=== PATIENT | female | born 1955 | race Caucasian/White ===

== ENCOUNTER 2019-03-16 17:09 | Observation (INO) ==
--- NOTE | 2019-03-16 17:23 | Emergency Department Note ---
Disposition Clinical Impression: Near syncope, Hypoxia, COPD exacerbation Disposition: Admitted As Inpatient Condition: Undetermined Referrals: Rebekah Rae MD [Primary Care Provider] - Forms: ED Satisfaction Letter Time of Disposition: 20:03 General Adult HPI - General Stated complaint: near syncope Time Seen by Provider: 03/16/19 17:10 Source: patient, family (daughter), EMS Mode of arrival: EMS Limitations: no limitations Nursing Notes Reviewed: Yes Vital Signs Reviewed: Yes - History of Present Illness HPI Narrative: Patient is a 64-year-old female with a past medical history including hyperlipidemia, asthma/COPD not on home oxygen, presenting with chief complaint of near syncopal event. The patient states she has a history of syncope. She has been evaluated by cardiology and had a Holter monitor. She states they do not know what caused her syncope. She states she has stopped following up with cardiology a year ago. Today she states her and her daughter had this eaten food. Around 4:30 PM, they went into the store. When she was walking, she suddenly developed lightheadedness. She states her vision started to black out and she felt very nauseous. She thought she was going to pass out so she sat on the floor. Daughter states she was very flushed. Symptoms started to resolve when the patient was sitting. EMS was called and brought the patient here. Vitals within normal limits. Patient states she is feeling better now. She denies any chest pain, shortness of breath, abdominal pain, vomiting during this episode. Patient denies any history of blood clots, denies recent travel or surgery, hormone therapy, hemoptysis, unilateral lower extremity swelling. - Related Data Home Medications Medication Instructions Recorded Confirmed Advair Hfa 230-21 Mcg Inhaler 06/28/15 06/28/15 Atorvastatin 06/28/15 06/28/15 Calcium. 06/28/15 06/28/15 Ranitidine HCl 06/28/15 06/28/15 Spiriva 06/28/15 06/28/15 Allergies Allergy/AdvReac Type Severity Reaction Status Date / Time Cephalosporins Allergy Dizziness Verified 03/16/19 17:35 ciprofloxacin [From Cipro] Allergy Confusion Verified 03/16/19 17:35 esomeprazole [From Nexium] Allergy Rash Verified 03/16/19 17:35 Penicillins [PCN] Allergy Confusion Verified 03/16/19 17:35 phenobarbital Allergy Confusion Verified 03/16/19 17:35 Procaine [From Novocain] Allergy Confusion Verified 03/16/19 17:35 All systems ED: reviewed and negative except as stated. Review of Systems: As Per HPI Constitutional: Denies: fever, chills Cardiovascular: Reports: syncope. Denies: chest pain, palpitations Respiratory: Denies: cough, dyspnea Gastrointestinal: Reports: nausea. Denies: abdominal pain, vomiting, diarrhea Neurological: Denies: headache, weakness Past Medical History - Past Medical History Attestation: Yes The following information was validated with the patient. 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 - Social History Smoking Status: Unknown if ever smoked Smokeless Tobacco Status: No Alcohol use: Reports: none Drug use: Reports: none Physical Exam - General Limitations: no limitations General appearance: alert, in no apparent distress - Head Head exam: atraumatic, normocephalic - Eye Eye exam: Present: normal appearance, PERRL, EOMI - ENT ENT exam: normal exam, mucous membranes moist - Neck Neck exam: Present: normal inspection, trachea midline - Chest Chest inspection: Present: normal inspection, symmetric chest wall rise - Respiratory Respiratory exam: Present: other (significantly diminished breath sounds bilaterally with mild expiratory wheezing, O2 saturation 88% on room air, no accessory muscle use ) - Cardiovascular Cardiovascular exam: Present: regular rate, normal rhythm, normal heart sounds. Absent: systolic murmur, diastolic murmur - Abdominal Exam Abdominal exam: Present: soft, Non-Tender. Absent: distention - Extremities Exam Extremities exam: Present: full ROM, normal capillary refill. Absent: pedal edema, calf tenderness - Neurological Exam Neurological exam: Present: alert, oriented X3 - Psychiatric Psychiatric exam: Present: normal affect, normal mood - Skin Skin exam: Present: warm, dry. Absent: diaphoresis, pallor Course Vital Signs Temperature 98.8 F 03/16/19 17:35 Pulse Rate 97 03/16/19 17:35 Respiratory Rate 19 03/16/19 17:35 Blood Pressure 130/75 03/16/19 17:35 O2 Sat by Pulse Oximetry 94 03/16/19 17:35 Temperature 98.8 F 03/16/19 17:35 Pulse Rate 97 03/16/19 18:07 Respiratory Rate 16 03/16/19 18:07 Blood Pressure 120/77 03/16/19 18:07 O2 Sat by Pulse Oximetry 95 03/16/19 18:07 Oxygen Delivery Oxygen Delivery Nasal Cannula Medical Decision Making - MDM Narrative Medical decision making narrative: Patient is presenting with a near syncopal event. She did not lose conscious ness. At this time, she states she is feeling better and is no acute complaints. We will place the patient on the monitor, obtain CBC, BMP, troponin, EKG, chest x-ray to further evaluate. patient has no risk factors for pulmonary embolism. She has diminished breath sounds with some expiratory whee zing, hypoxic with oxygen saturation of 88% and she does not wear oxygen. Suspect also COPD exacerbation. Will check VBG. Will give her triple duoneb treatments and reassess. 17:55 CXR shows no acute process. Patient is declining the duonebs at this time. She states she has multiple allergies and she does not want to risk taking a medication she has not had before. Despite discussing with the patient this will help with the wheezing and possibly the hypoxia, patient is declining. D-dimer not elevated, troponin not elevated. 19:30 Patient ambulated. Her oxygen saturations dropped to 84%. Her near syncopal event is likely secondary to hypoxia. She will benefit from admission and may qualify for home oxygen use. 20:[address] Sosa and Dr. Pascual, hospitalist who accept admission - Medical Records Medical records reviewed: Yes I reviewed the patient's medical records. - Lab Data Lab results reviewed: Yes I reviewed the patient's lab results. Result diagrams: 03/16/19 17:24 03/16/19 17:24 Lab Results 03/16/19 03/16/19 03/16/19 Range/Units 17:24 17:24 17:24 WBC 8.1 (4.3-11.1) K/mcL RBC 4.06 (3.82-4.97) M/mcL Hgb 12.6 (11.5-15.4) g/dL Hct 37.8 (35.3-44.9) % MCV 93.1 (83.0-100.0) fL MCH 31.0 (28.0-33.3) pg MCHC 33.3 (31.6-35.5) g/dL RDW 13.6 (11.5-14.5) % Plt Count 199 (140-400) K/mcL MPV 11.9 (9.4-12.4) fL Immature Gran % 0.4 (0-4) % Seg Neutrophils % 65.2 % Lymphocytes % 27.1 % Monocytes % 6.7 % Eosinophils % 0.4 % Basophils % 0.2 % Neutrophils # 5.3 (1.6-8.9) K/mcL Lymphocytes # 2.2 (0.6-4.6) K/mcL Monocytes # 0.5 (0.0-1.3) K/mcL Eosinophils # 0.0 (0.0-0.6) K/mcL Basophils # 0.0 (0.0-0.2) K/mcL PT 11.0 (9.4-12.1) Seconds INR 1.0 APTT 30.8 (26.0-36.0) Seconds D-Dimer (0-500) ng/mLFEU VBG pH (7.32-7.42) pH Units VBG pCO2 (41-51) mmHg VBG pO2 (25-50) mmHg VBG HCO3 (21-27) mEq/L Sodium 138 (136-145) mEq/L Potassium 3.7 (3.5-5.1) mEq/L Chloride 102 (98-107) mEq/L Carbon Dioxide 25 (23-29) mEq/L BUN 13 (8-23) mg/dL Creatinine 0.97 (0.60-1.20) mg/dL Est GFR ( Amer) > 60 (> 60) Est GFR (Non-Af Amer) 57 L (> 60) BUN/Creatinine Ratio 13 (6-26) Glucose 172 H (70-105) mg/dL Calculated Osmolality 290 (280-300) Calcium 9.4 (8.6-10.3) mg/dL Troponin I < 0.03 (< 0.04) ng/mL 03/16/19 03/16/19 Range/Units 17:57 18:13 WBC (4.3-11.1) K/mcL RBC (3.82-4.97) M/mcL Hgb (11.5-15.4) g/dL Hct (35.3-44.9) % MCV (83.0-100.0) fL MCH (28.0-33.3) pg MCHC (31.6-35.5) g/dL RDW (11.5-14.5) % Plt Count (140-400) K/mcL MPV (9.4-12.4) fL Immature Gran % (0-4) % Seg Neutrophils % % Lymphocytes % % Monocytes % % Eosinophils % % Basophils % % Neutrophils # (1.6-8.9) K/mcL Lymphocytes # (0.6-4.6) K/mcL Monocytes # (0.0-1.3) K/mcL Eosinophils # (0.0-0.6) K/mcL Basophils # (0.0-0.2) K/mcL PT (9.4-12.1) Seconds INR APTT (26.0-36.0) Seconds D-Dimer 462 (0-500) ng/mLFEU VBG pH 7.40 (7.32-7.42) pH Units VBG pCO2 43 (41-51) mmHg VBG pO2 131 H (25-50) mmHg VBG HCO3 27 (21-27) mEq/L Sodium (136-145) mEq/L Potassium (3.5-5.1) mEq/L Chloride (98-107) mEq/L Carbon Dioxide (23-29) mEq/L BUN (8-23) mg/dL Creatinine (0.60-1.20) mg/dL Est GFR ( Amer) (> 60) Est GFR (Non-Af Amer) (> 60) BUN/Creatinine Ratio (6-26) Glucose (70-105) mg/dL Calculated Osmolality (280-300) Calcium (8.6-10.3) mg/dL Troponin I (< 0.04) ng/mL - Radiology Data Radiology results reviewed: Yes I reviewed the patient's radiology results. Chest X-Ray 03/16/19 17:17 IMPRESSION: No acute process. D/ / Philip Chong MD / Philip Chong MD Interpreting Provider: Philip Chong MD - EKG Data EKG #1 EKG attestation: Yes I reviewed and interpreted this EKG. EKG results narrative: EKG obtained at 1718 shows sinus tachycardia with heart rate 101, TN interval 136, QRS duration 98, QTc 471, no ST elevation, no ST depression, compared to old EKG on 05/29/2016 which shows no new changes.
[2019-03-16] MEDS ORDERED: Ipratropium/Albuterol Neb 3 ML IH ONE (17:34)
[2019-03-16] MEDS ORDERED: methylPREDNISolone 125 MG/2 ML VIAL IVP ONE (17:35)
--- NOTE | 2019-03-16 17:43 | Emergency Department Note ---
Disposition Clinical Impression: Near syncope, Hypoxia, COPD exacerbation Disposition: Admitted As Inpatient Condition: Undetermined Referrals: Rebekah Rae MD [Primary Care Provider] - Forms: ED Satisfaction Letter Time of Disposition: 19:35 General Adult HPI - General Chief complaint: ED Syncope Stated complaint: near syncope Time Seen by Provider: 03/16/19 17:10 Source: patient, family, EMS Mode of arrival: EMS Limitations: no limitations - History of Present Illness Pain Scale: 0 - Related Data Home Medications Medication Instructions Recorded Confirmed Advair Hfa 230-21 Mcg Inhaler 06/28/15 06/28/15 Atorvastatin 06/28/15 06/28/15 Calcium. 06/28/15 06/28/15 Ranitidine HCl 06/28/15 06/28/15 Spiriva 06/28/15 06/28/15 Previous Rx's Medication Instructions Recorded GuaiFENesin ER [Mucinex] 1,200 mg PO BID #20 tbbp.12hr 06/28/15 Allergies Allergy/AdvReac Type Severity Reaction Status Date / Time Cephalosporins Allergy Dizziness Verified 03/16/19 17:35 ciprofloxacin [From Cipro] Allergy Confusion Verified 03/16/19 17:35 esomeprazole [From Nexium] Allergy Rash Verified 03/16/19 17:35 Penicillins [PCN] Allergy Confusion Verified 03/16/19 17:35 phenobarbital Allergy Confusion Verified 03/16/19 17:35 Procaine [From Novocain] Allergy Confusion Verified 03/16/19 17:35 Constitutional: Denies: fever, chills Cardiovascular: Reports: syncope. Denies: chest pain, palpitations Respiratory: Denies: cough, dyspnea Gastrointestinal: Reports: nausea. 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 - Social History Smoking Status: Former smoker Smokeless Tobacco Status: No Alcohol use: Reports: none Drug use: Reports: none Physical Exam - General Limitations: no limitations General appearance: alert, in no apparent distress Course Vital Signs Temperature 98.8 F 03/16/19 17:35 Pulse Rate 97 03/16/19 17:35 Respiratory Rate 03/16/19 17:35 Blood Pressure 130/75 03/16/19 17:35 O2 Sat by Pulse Oximetry 94 03/16/19 17:35 Temperature 98.8 F 03/16/19 17:35 Pulse Rate 97 03/16/19 18:07 Respiratory Rate 16 03/16/19 18:07 Blood Pressure 120/77 03/16/19 18:07 O2 Sat by Pulse Oximetry 95 03/16/19 18:07 Oxygen Delivery Oxygen Delivery Nasal Cannula Medical Decision Making - MDM Narrative Medical decision making narrative: lab work all negative. Chest x-ray was negative per radiology. Patient's pulse ox been running in the low 90s and high 80s. I suspect she may qualify for home oxygen. Her d-dimer was negative. No evidence of pneumonia and she has no c omplaints of chest pain. We will offer admission. I feel the patient likely needs to be admitted to be further worked up for the hypoxia. This could be why she had this near syncopal episode today. - Medical Records Medical records reviewed: Yes I reviewed the patient's medical records. - Lab Data Lab results reviewed: Yes I reviewed the patient's lab results. Result diagrams: 03/16/19 17:24 03/16/19 17:24 Lab Results 03/16/19 03/16/19 03/16/19 Range/Units 17:24 17:24 17:24 WBC 8.1 (4.3-11.1) K/mcL RBC 4.06 (3.82-4.97) M/mcL Hgb 12.6 (11.5-15.4) g/dL Hct 37.8 (35.3-44.9) % MCV 93.1 (83.0-100.0) fL MCH 31.0 (28.0-33.3) pg MCHC 33.3 (31.6-35.5) g/dL RDW 13.6 (11.5-14.5) % Plt Count 199 (140-400) K/mcL MPV 11.9 (9.4-12.4) fL Immature Gran % 0.4 (0-4) % Seg Neutrophils % 65.2 % Lymphocytes % 27.1 % Monocytes % 6.7 % Eosinophils % 0.4 % Basophils % 0.2 % Neutrophils # 5.3 (1.6-8.9) K/mcL Lymphocytes # 2.2 (0.6-4.6) K/mcL Monocytes # 0.5 (0.0-1.3) K/mcL Eosinophils # 0.0 (0.0-0.6) K/mcL Basophils # 0.0 (0.0-0.2) K/mcL PT 11.0 (9.4-12.1) Seconds INR 1.0 APTT 30.8 (26.0-36.0) Seconds D-Dimer (0-500) ng/mLFEU VBG pH (7.32-7.42) pH Units VBG pCO2 (41-51) mmHg VBG pO2 (25-50) mmHg VBG HCO3 (21-27) mEq/L Sodium 138 (136-145) mEq/L Potassium 3.7 (3.5-5.1) mEq/L Chloride 102 (98-107) mEq/L Carbon Dioxide 25 (23-29) mEq/L BUN 13 (8-23) mg/dL Creatinine 0.97 (0.60-1.20) mg/dL Est GFR ( Amer) > 60 (> 60) Est GFR (Non-Af Amer) 57 L (> 60) BUN/Creatinine Ratio 13 (6-26) Glucose 172 H (70-105) mg/dL Calculated Osmolality 290 (280-300) Calcium 9.4 (8.6-10.3) mg/dL Troponin I < 0.03 (< 0.04) ng/mL 03/16/19 03/16/19 Range/Units 17:57 18:13 WBC (4.3-11.1) K/mcL RBC (3.82-4.97) M/mcL Hgb (11.5-15.4) g/dL Hct (35.3-44.9) % MCV (83.0-100.0) fL MCH (28.0-33.3) pg MCHC (31.6-35.5) g/dL RDW (11.5-14.5) % Plt Count (140-400) K/mcL MPV (9.4-12.4) fL Immature Gran % (0-4) % Seg Neutrophils % % Lymphocytes % % Monocytes % % Eosinophils % % Basophils % % Neutrophils # (1.6-8.9) K/mcL Lymphocytes # (0.6-4.6) K/mcL Monocytes # (0.0-1.3) K/mcL Eosinophils # (0.0-0.6) K/mcL Basophils # (0.0-0.2) K/mcL PT (9.4-12.1) Seconds INR APTT (26.0-36.0) Seconds D-Dimer 462 (0-500) ng/mLFEU VBG pH 7.40 (7.32-7.42) pH Units VBG pCO2 43 (41-51) mmHg VBG pO2 131 H (25-50) mmHg VBG HCO3 27 (21-27) mEq/L Sodium (136-145) mEq/L Potassium (3.5-5.1) mEq/L Chloride (98-107) mEq/L Carbon Dioxide (23-29) mEq/L BUN (8-23) mg/dL Creatinine (0.60-1.20) mg/dL Est GFR ( Amer) (> 60) Est GFR (Non-Af Amer) (> 60) BUN/Creatinine Ratio (6-26) Glucose (70-105) mg/dL Calculated Osmolality (280-300) Calcium (8.6-10.3) mg/dL Troponin I (< 0.04) ng/mL - Radiology Data Radiology results reviewed: Yes I reviewed the patient's radiology results. Attestation Statement - Attestation Attestation: I examined this patient and my medical decision-making was reviewed with the Resident Physician. I agree with the documented findings, disposition and treatment plan as described except to the extent set forth below. 64-year-old female since emergency room for near syncope. Was at the store with her family members when all of a sudden she felt like she might pass out. [place] fine this morning. She never truly had a full syncopal episode. She denies any head injuries. Patient was found to be hypoxic in the high 80s with her pulse ox is slightly tachycardic. History of COPD. She states she has not had a smoking in many years. She denies any other complaints at this time. EKG was unremarkable. No signs acute ischemia. ekg noted and reviewed and agree with resident documentation.
[2019-03-16 17:54] LABS: Basophils % 0.2 %; Eosinophils % 0.4 %; Hematocrit 37.8 % (35.3-44.9); Hemoglobin 12.6 g/dL (11.5-15.4); Immature Granulocytes % 0.4 % (0-4); Lymphocytes # 2.2 K/mcL (0.6-4.6); Lymphocytes % 27.1 %; Mean Corpuscular HGB Conc 33.3 g/dL (31.6-35.5); Mean Corpuscular Volume 93.1 fL (83.0-100.0); Mean Platelet Volume 11.9 fL (9.4-12.4); Monocytes # 0.5 K/mcL (0.0-1.3); Monocytes % 6.7 %; Neutrophils # 5.3 K/mcL (1.6-8.9); Platelet Count 199 K/mcL (140-400); Red Blood Count 4.06 M/mcL (3.82-4.97); Red Cell Distribution Width 13.6 % (11.5-14.5); Segmented Neutrophils % 65.2 %; White Blood Count 8.1 K/mcL (4.3-11.1)
[2019-03-16 18:03] LABS: Activated Partial Thrombo Time 30.8 Seconds (26.0-36.0)
[2019-03-16 18:13] LABS: BUN/Creatinine Ratio 13 (6-26); Blood Urea Nitrogen 13 mg/dL (8-23); Calcium 9.4 mg/dL (8.6-10.3); Carbon Dioxide 25 mEq/L (23-29); Chloride 102 mEq/L (98-107); Glucose 172 mg/dL (70-105); Osmolality,Calculated 290 (280-300); Potassium 3.7 mEq/L (3.5-5.1); Sodium 138 mEq/L (136-145); Troponin I < 0.03 ng/mL (< 0.04); eGFR For African Americans > 60 (> 60); eGFR For Non-African Americans 57 (> 60)
[2019-03-16 18:16] LABS: VBG HCO3 27 mEq/L (21-27); VBG PCO2 43 mmHg (41-51); VBG PO2 131 mmHg (25-50)
--- NOTE | 2019-03-16 22:39 | Internal Med History&Physical ---
Date of Encounter: 03/16/19 Time of Encounter: 19:00 Internal Medicine - H&P: HPI Chief complaint: near syncopal episode. History of present illness: Ms. 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 The patient stated that she has history of several episodes over the last year. She was evaluated by cardiology and Holter monitor was placed, however she is not clear what was the result of Holter monitor monitoring and she lost follow-up with cardiology almost a year ago. The patient reported feeling lightheaded before she black out. The patient was brought by the EMS and open on arrival her vitals was within normal limit, she denies chest pain, shortness of breath, orthopnea, paroxysmal nocturnal dyspnea, progressive forcing of lower extremity edema, nausea, vomiting, diarrhea, changes of urinary habit or abdominal pain. Past Med Surg Social Fam HX - Past Medical History Medical history: asthma, COPD, hyperlipidemia Psychiatric history: no psych history - Social History Smoking Status: Former smoker Smokeless Tobacco Status: No Alcohol use: none Drug use: none - Family History Mother Living Status: Hx Family Cardiac Disorders: Yes Hx Family Respiratory Disorders: Yes Brother Living Status: Hx Family Cardiac Disorders: Yes Internal Medicine - H&P: Meds Acetaminophen [Tylenol] 325 mg PO DAILY PRN 03/18/19 [History] Atorvastatin Calcium [Lipitor] 20 mg PO DAILY 03/18/19 [History] Calcium Carbonate [Calcium] 500 mg PO DAILY 03/18/19 [History] Fluticasone Propionate Nasal [Flonase] 1 spray NS DAILY PRN 03/18/19 [History] Fluticasone/Salmeterol [Advair Hfa 230-21 Mcg Inhaler] 2 puff IH BID 03/18/19 [ History] Ranitidine HCl [Heartburn Relief] 150 mg PO DAILY 03/18/19 [History] Tiotropium [Spiriva] 1 puff IH DAILY 03/18/19 [History] predniSONE [PredniSONE] 40 mg PO DAILY #6 tablet 03/18/19 [Rx] raNITIdine HCl [Zantac] 150 mg PO HS PRN 03/18/19 [History] Allergy/AdvReac Type Severity Reaction Status Date / Time Cephalosporins Allergy Dizziness Verified 03/16/19 17:35 ciprofloxacin [From Cipro] Allergy Confusion Verified 03/16/19 17:35 esomeprazole [From Nexium] Allergy Rash Verified 03/16/19 17:35 Penicillins [PCN] Allergy Confusion Verified 03/16/19 17:35 phenobarbital Allergy Confusion Verified 03/16/19 17:35 Procaine [From Novocain] Allergy Confusion Verified 03/16/19 17:35 All Systems PM: A 10-system review of systems was performed and is negative for pertinent findings except as documented above in the HPI. - Constitutional Vitals: Temp Pulse Resp BP Pulse Ox 98.0 F 93 16 133/78 94 03/16/19 21:28 03/16/19 21:28 03/16/19 21:28 03/16/19 21:28 03/16/19 21:28 General appearance: Present: A&O X 3 Exam: ` - Head Head exam: Present: atraumatic, normocephalic - Neck Neck exam general surgery: Present: supple, trachea midline. Absent: lymphadenopathy - Respiratory Respiratory exam: Present: rhonchi, wheezes. Absent: accessory muscle use, rales - Cardiovascular Cardiovascular exam: Present: RRR, +S1, +S2. Absent: diastolic murmur, gallop, rubs, systolic murmur - GI/Abdominal GI/Abdominal exam: Present: normal bowel sounds, soft, no peritoneal signs. Absent: distended, tenderness - Extremities Exam Extremities exam: Present: warm, radial pulses palpable and symmetrical. Absent: calf tenderness, cyanotic, pedal edema Internal Med - H&P Results - Labs CBC & Chem 7: 03/17/19 01:12 03/18/19 04:59 Labs: Short CBC 03/16/19 Range/Units 17:24 WBC 8.1 (4.3-11.1) K/mcL Hgb 12.6 (11.5-15.4) g/dL Hct 37.8 (35.3-44.9) % Plt Count 199 (140-400) K/mcL Neutrophils # 5.3 (1.6-8.9) K/mcL BMP 03/16/19 17:24 Sodium 138 Potassium 3.7 Chloride 102 Carbon Dioxide 25 BUN 13 Creatinine 0.97 Glucose 172 H Calcium 9.4 Cardiac Enzymes 03/16/19 Range/Units 17:24 Troponin I < 0.03 (< 0.04) ng/mL - ABG Interpretation ABG results: 03/16/19 18:13 VBG pH 7.40 VBG pCO2 43 VBG pO2 131 H VBG HCO3 27 - Impressions ITS Impressions Chest X-Ray 03/16/19 17:17 IMPRESSION: No acute process. D/ / Philip Chong MD / Philip Chong MD Interpreting Provider: Philip Chong MD - Assessment and Plan (1) Near syncope Status: Acute Assessment and plan: - Pre- Syncope - Telemetry - Cardiac enzymes x 2 q 8hr - EKG now and in AM - 2D Echo - Carotid duplex - UA (2) Hypoxia Status: Acute Assessment and plan: Likely secondary to COPD exacerbation , patient was treated with inhalers and Solu-Medrol , The patient was saturating 95 % on 2 L of O2, we will continue oxygen supplementation. (3) COPD exacerbation Status: Acute Assessment and plan: *Asthma exacerbation caused by URTI vs allergen exposure, vs medication nonocompliance *Pneumonia - no infiltrate on CXR PLAN: - Aerosols q 4 hr and PRN SOB - Solu-medrol 40 mg IV q 6 hr - O2 to keep SpO2 higher than 92% (SpO higher than 95% if CAD) - CBCD, BMP in AM - Sputum Gram stain, C+S - Tylenol 650 mg PO q 4-6 hr PRN pain/fever - Heparin 5000 U SQ BID - Time Spent With Patient Total time spent is greater than 50% in coordination of care (as documented) at patient's floor/unit and/or counseling patient:
[2019-03-17] MEDS ORDERED: Ondansetron 4 MG/2 ML VIAL IVP PRN (00:36)
[2019-03-17] MEDS ORDERED: Naloxone 0.4 MG/ML INJ IVP PRN (00:36)
[2019-03-17 01:34] LABS: Basophils % 0.1 %; Hematocrit 40.9 % (35.3-44.9); Hemoglobin 13.6 g/dL (11.5-15.4); Immature Granulocytes % 1.1 % (0-4); Lymphocytes # 0.9 K/mcL (0.6-4.6); Lymphocytes % 10.8 %; Mean Corpuscular HGB Conc 33.3 g/dL (31.6-35.5); Mean Corpuscular Hemoglobin 31.1 pg (28.0-33.3); Mean Corpuscular Volume 93.4 fL (83.0-100.0); Mean Platelet Volume 11.7 fL (9.4-12.4); Monocytes % 0.5 %; Neutrophils # 7.2 K/mcL (1.6-8.9); Platelet Count 191 K/mcL (140-400); Red Blood Count 4.38 M/mcL (3.82-4.97); Red Cell Distribution Width 13.6 % (11.5-14.5); Segmented Neutrophils % 87.5 %; White Blood Count 8.2 K/mcL (4.3-11.1)
[2019-03-17 01:49] LABS: Activated Partial Thrombo Time 31.5 Seconds (26.0-36.0)
[2019-03-17 01:54] LABS: Alanine Aminotransferase 17 Units/L (7-52); Albumin 4.1 g/dL (3.5-5.7); Albumin/Globulin Ratio 1.5 (1.1-2.2); Alkaline Phosphatase 55 Units/L (34-104); Aspartate Amino Transferase 19 Units/L (13-39); BUN/Creatinine Ratio 16 (6-26); Bilirubin,Total 0.4 mg/dL (0.3-1.0); Blood Urea Nitrogen 14 mg/dL (8-23); Calcium 9.3 mg/dL (8.6-10.3); Carbon Dioxide 26 mEq/L (23-29); Chloride 103 mEq/L (98-107); Chol/HDL Ratio 2.9 (0-4.9); Cholesterol 167 mg/dL (< 200); Globulin 2.8 g/dL (2.4-3.5); Glucose 163 mg/dL (70-105); HDL Cholesterol 57 mg/dL (40-59); LDL Cholesterol,Calculated 102 mg/dL (0-99); Osmolality,Calculated 288 (280-300); Phosphorous 3.6 mg/dL (2.7-4.5); Potassium 3.9 mEq/L (3.5-5.1); Sodium 137 mEq/L (136-145); Total Protein 6.9 g/dL (6.4-8.9); Triglycerides 40 mg/dL (< 150); eGFR For African Americans > 60 (> 60); eGFR For Non-African Americans > 60 (> 60)
[2019-03-17] MEDS ORDERED: Albuterol 2.5 MG/3 ML NEBULIZER IH PRN (03:41)
[2019-03-17 04:03] LABS: Bilirubin,Urine Negative (Negative); Blood,Urine Negative (Negative); Clarity,Urine Clear (Clear); Color,Urine Yellow (Yellow); Glucose,Urine (UA) Normal (Normal); Ketones,Urine Negative (Negative); Leukocyte Esterase,Urine Negative (Negative); Nitrite,Urine Negative (Negative); Protein,Urine Negative (Neg-Trace); Specific Gravity,Urine 1.016 (1.010-1.025); Urobilinogen,Urine Normal (Normal)
[2019-03-17] MEDS ORDERED: Ipratropium/Albuterol Neb 3 ML IH SCH (05:00)
[2019-03-17] MEDS: MethylPREDNISolone 40 MG/ML VIAL IVP SCH ×2 (05:28→11:57)
[2019-03-17] MEDS: Famotidine 20 MG TABLET PO SCH (05:28)
[2019-03-17] MEDS: Budesonide/Formoterol 80/4.5 MDI IH SCH ×2 (07:45→20:21)
--- NOTE | 2019-03-17 09:28 | Internal Med Progress Note ---
<Dalila Bartlett - Last Filed: 03/17/19 16:51> Hospitalist Progress Note - Encounter Date of Encounter: 03/17/19 - Exam Vitals: Temp Pulse Resp BP Pulse Ox 97.7 F 81 16 108/68 96 03/17/19 15:24 03/17/19 15:24 03/17/19 15:24 03/17/19 15:24 03/17/19 15:24 - Assessment and Plan (1) Near syncope Current Visit: Yes Status: Acute Comments: - likely etiology - hypoxia 2/2 chronic respiratory failure in presence of COPD - noncompliant with home O2 - inital EKG in ED showed ventriular trigeminy but repeat EKG was negative - no evidence of arrythmia - troponin, CXR - negative - carotid ultrasound unremarkable - echocardiogram - unremarkable - orthostatic vitals: lying 120/70 (89), sitting 121/69 (90), standing 101/61 (85) - denies headache, blurry vision, chest pain, SOB, N/V, numbness/tingling, incon tinence - hemodynamically stable at this time - continue to monitor vitals - monitor labs - repeat orthostatic vitals tmrw (2) Hypoxia Current Visit: Yes Status: Acute (3) COPD exacerbation Current Visit: Yes Status: Acute - Time Spent with Patient Total time spent is greater than 50% in coordination of care (as documented) at patient's floor/unit and/or counseling patient: Internal Medicine: Result - Labs CBC & Chem 7: 03/17/19 01:12 03/17/19 01:12 Labs: Short CBC 03/16/19 03/17/19 Range/Units 17:24 01:12 WBC 8.1 8.2 (4.3-11.1) K/mcL Hgb 12.6 13.6 (11.5-15.4) g/dL Hct 37.8 40.9 (35.3-44.9) % Plt Count 199 191 (140-400) K/mcL Neutrophils # 5.3 7.2 (1.6-8.9) K/mcL BMP 03/16/19 03/17/19 17:24 01:12 Sodium 138 137 Potassium 3.7 3.9 Chloride 102 103 Carbon Dioxide 25 26 BUN 13 14 Creatinine 0.97 0.85 Glucose 172 H 163 H Calcium 9.4 9.3 Cardiac Enzymes 03/16/19 03/17/19 03/17/19 Range/Units 17:24 01:12 06:45 Troponin I < 0.03 < 0.03 < 0.03 (< 0.04) ng/mL 03/17/19 Range/Units 12:27 Troponin I < 0.03 (< 0.04) ng/mL Liver Function 03/17/19 Range/Units 01:12 Total Bilirubin 0.4 (0.3-1.0) mg/dL AST 19 (13-39) Units/L ALT 17 (7-52) Units/L Alkaline Phosphatase 55 (34-104) Units/L Albumin 4.1 (3.5-5.7) g/dL Urine 03/17/19 Range/Units 03:50 Urine Color Yellow (Yellow) Urine Clarity Clear (Clear) Urine pH 6.0 (5.0-8.0) pH Units Ur Specific [place] 1.016 (1.010-1.025) Urine Protein Negative (Neg-Trace) mg/dL Urine Glucose (UA) Normal (Normal) mg/dL - ABG Interpretation ABG results: PT/INR, D-dimer PT 11.0 Seconds (9.4-12.1) 03/17/19 01:12 D-Dimer 462 ng/mLFEU (0-500) 03/16/19 17:57 - Impressions Impressions Chest X-Ray 03/16/19 17:17 IMPRESSION: No acute process. D/ / Philip Chong MD / Philip Chong MD Interpreting Provider: Philip Chong MD Echocardiogram 03/17/19 00:42 Impressions: LVEF 60%. Normal LV chamber size, wall thickness and function. Normal left ventricular diastolic function. Normal right ventricular structure and function. No evidence of pulmonary hypertension. No significant valvular dysfunction. Left Ventricular Wall Motion: Rest Echo Findings All wall segments showed normal motion. Findings: Study Quality * Technically adequate exam. ECG Findings * Normal sinus rhythm. Left Ventricle * LVEF 60%. * Normal LV chamber size, wall thickness and function. * Normal left ventricular diastolic function. Right Ventricle * Normal right ventricular structure and function. Left Atrium * Normal left atrial size. Right Atrium * Normal right atrial size. Aortic Valve * Trileaflet aortic valve. * Normal aortic valve structure. * No aortic regurgitation. * No aortic stenosis. Mitral Valve * Normal mitral valve structure. * No mitral regurgitation. * No mitral stenosis. Tricuspid Valve * Trace tricuspid regurgitation. * No tricuspid stenosis. * No evidence of pulmonary hypertension. * Normal tricuspid valve structure. Pulmonic Valve * Trace pulmonic regurgitation. Aorta * Normally sized aortic root. Pericardium * The pericardium appears normal. IVC * Normal IVC dimensions and inspiratory collapse. Pulmonary Artery * Normal visualized portions of the main pulmonary artery. Consult Discharge Plan - Plan Referrals: Rebekah Rae MD [Primary Care Provider] - - Attending Attestation I examined this patient and my medical decision-making was reviewed with the Resident Physician Dr Geiger. I agree with the documented findings, disposition and treatment plan as described except to the extent set forth below. Ms Cordova is observed for presyncopal episode and shortness of breath awake, no cp, plapitations or dizziness/lightheadedness. has not been out of bed. She is not sob on o2 nc currently. she is supposed to wear o2 nc at home at night and with exertion 2l, however she does not routinely comply. She has been asx since admit with o2 nc in place. no cough or sputum changes, some wheezing, none now. gen- alert, awake,appears stated age cv- reg rate and rhythm, normal s1,s2, lungs- ctabl, no wheezing, diminsihed throughout, normal resp effort on o2 nc neuro- AAOx3, CN grossly intact Presyncope, hx of same with cardiac work up at OSH, followed previously with [facility] in [place] EKG was initially abn with ventricular trigeminy, no ischemic changes, repeat 03/17 normal CUS prelim neg, echo unremarkable cardiac cath 2015 non obstructive CAD Suspected related to hypoxia with non compliance w home O2 and was exerting herself at the time -check orthostats, attempting to obtain old records, cont tele Mild Asthma exacerbation Cannot clinically determine if this is an acute on chronic hypoxic resp failure as no recorded o2 sats on room air in ED -wean o2, check 6 min walk to further clarify dx -decrease steroids and transition to PO in am, cont nebs/inhalers <Fely,Samidha S - Last Filed: 03/17/19 17:22> Hospitalist Progress Note - Encounter Date of Encounter: 03/17/19 Time of Encounter: 17:22 - Subjective Interval History: Patient is a 64F with significant PMH of COPD, on 2 L home O2 (noncompliant), takes daily Spiriva and Advair. She does not like to take her home O2 because it gives her nosebleeds. She can go up a flight of stairs without TY, but gets out of breath when walking a significant distance from her house to her trash can. Also has history of near syncopal episodes in the past, cardiac workup in 2017 was negative (cardiac catheter was unremarkable). Last syncopal episode was one year ago. She presented to the ED after a near syncopal episode. She was in the store with her daughter yesterday. She was pushing a cart and exerting herself more than usual. She felt lightheaded, vision went dark, and she had to sit down. No LOC, no prodromal symptoms. States that she felt hot at that time. ED workup showed negative troponin, negative EKG, negative chest x-ray, negative d-dimer, negative UA. In the ED, she was hypoxic (high 80s), tachycardic. She was admitted for further evaluation Patient was seen and examined at bedside. Denies cough, changes in sputum, difficulty breathing, fever, chills, diaphoresis, headache, chest pain, N/V/D/C, dysuria, incontinence, abdominal pain. States that lately she has been having cramps in her lower extremities otherwise no acute complaints at this time. - Exam Vitals: Temp Pulse Resp BP Pulse Ox 97.5 F L 77 18 117/72 97 03/17/19 08:31 03/17/19 08:31 03/17/19 08:31 03/17/19 08:31 03/17/19 08:31 Exam: Constitutional: alert, oriented, in no acute distress, oriented X 3, well nourished, well-developed Head: normocephalic, atraumatic Eyes: EOMI, pupils equal and reactive bilaterally Heart: normal, regular rate and rhythm, no murmurs, S1, S2 normal Lungs: clear to auscultation, no wheezes, rales, rhonchi Abdomen: soft, nontender, nondistended, no masses palpable, bowel sounds present and normal, no hepatosplenomegaly, no guarding or rigidity, no CVA tenderness Extremities: no clubbing, cyanosis, or edema, pulses +3/4 in all 4 extremities Skin: dry, intact, no bruising Psych: alert, oriented, cooperative with exam, good eye contact, cognitive function intact, judgement and insight good, speech clear, thought process logical, goal directed - Assessment and Plan (1) Near syncope Current Visit: Yes Status: Acute Comments: - likely etiology - hypoxia 2/2 chronic respiratory failure in presence of COPD - noncompliant with home O2 - inital EKG in ED showed ventriular trigeminy but repeat EKG was negative - no evidence of arrythmia - troponin, CXR - negative - carotid ultrasound unremarkable - echocardiogram - unremarkable - orthostatic vitals: lying 120/70 (89), sitting 121/69 (90), standing 101/61 ( 85) - denies headache, blurry vision, chest pain, SOB, N/V, numbness/tingling, incontinence - hemodynamically stable at this time - continue to monitor vitals - monitor labs - repeat orthostatic vitals tmrw (2) COPD (chronic obstructive pulmonary disease) Current Visit: Yes Status: Acute Comments: - daily meds spiriva nad advair, non compliant with home O2 - chronic resp failure - unlikely to be a COPDE - denies sputum change, new TY, SOB - continue steroid regimen - will change regimen tmrw to prednisone 40mg PO - continue proventil, symbicort - 6 min walk test - monitor vitals (3) Asthma Current Visit: Yes Status: Acute Comments: - etiology poss mild asthma exacerbation - continue proventil, symbicort - monitor vitals (4) HLD (hyperlipidemia) Current Visit: Yes Status: Acute Comments: - takes lipitor 20mg at home - continue home meds (5) GERD (gastroesophageal reflux disease) Current Visit: Yes Status: Acute Comments: - on ranitidine 150mg at home - continue pepcid 20mg - Time Spent with Patient Total time spent is greater than 50% in coordination of care (as documented) at patient's floor/unit and/or counseling patient: Internal Medicine: Result - Labs CBC & Chem 7: 03/17/19 01:12 03/17/19 01:12 Labs: Short CBC 03/16/19 03/17/19 Range/Units 17:24 01:12 WBC 8.1 8.2 (4.3-11.1) K/mcL Hgb 12.6 13.6 (11.5-15.4) g/dL Hct 37.8 40.9 (35.3-44.9) % Plt Count 199 191 (140-400) K/mcL Neutrophils # 5.3 7.2 (1.6-8.9) K/mcL BMP 03/16/19 03/17/19 17:24 01:12 Sodium 138 137 Potassium 3.7 3.9 Chloride 102 103 Carbon Dioxide 25 26 BUN 13 14 Creatinine 0.97 0.85 Glucose 172 H 163 H Calcium 9.4 9.3 Cardiac Enzymes 03/16/19 03/17/19 03/17/19 Range/Units 17:24 01:12 06:45 Troponin I < 0.03 < 0.03 < 0.03 (< 0.04) ng/mL Liver Function 03/17/19 Range/Units 01:12 Total Bilirubin 0.4 (0.3-1.0) mg/dL AST 19 (13-39) Units/L ALT 17 (7-52) Units/L Alkaline Phosphatase 55 (34-104) Units/L Albumin 4.1 (3.5-5.7) g/dL Urine 03/17/19 Range/Units 03:50 Urine Color Yellow (Yellow) Urine Clarity Clear (Clear) Urine pH 6.0 (5.0-8.0) pH Units Ur Specific [place] 1.016 (1.010-1.025) Urine Protein Negative (Neg-Trace) mg/dL Urine Glucose (UA) Normal (Normal) mg/dL - ABG Interpretation ABG results: PT/INR, D-dimer PT 11.0 Seconds (9.4-12.1) 03/17/19 01:12 D-Dimer 462 ng/mLFEU (0-500) 03/16/19 17:57 - Impressions Impressions Chest X-Ray 03/16/19 17:17
[2019-03-17] MEDS: Tiotropium 18 MCG inhalation IH SCH (10:35)
--- NOTE | 2019-03-17 15:43 | Electrocardiograph Report ---
[address] [address] Test Date: 2019-03-17 Pat Name: Wes Cordova Department: 115 Room: 3A35 Gender: F Body Bumper: LUCAS : 1955 Requested By: Dalila Bartlett Order Number: [id number] Reading MD: Alia Bean Measurements Intervals [place] Rate: 72 P: 34 [place]: 145 QRS: 94 QRSD: 87 T: 63 QT: 412 QTc: 436 Interpretive Statements SINUS RHYTHM WITH SINUS ARRHYTHMIA BORDERLINE RIGHT AXIS DEVIATION Electronically Signed On 03-17-2019 15:41:43 EDT by Alia Bean
--- NOTE | 2019-03-17 16:29 | Electrocardiograph Report ---
[place] [address] Test Date: 2019-03-16 Pat Name: Wes Cordova Department: [id number] Room: 3A35 Gender: F Furniture Assembler: : 1955 Requested By: Bertha Tom Order Number: [id number] Reading MD: Bashir Bean Measurements Intervals [place] Rate: 101 P: 81 [place]: 136 QRS: 87 QRSD: 88 T: 45 QT: 363 QTc: 471 Interpretive Statements Sinus tachycardia PVCs Borderline right axis deviation Electronically Signed On 03-17-2019 16:27:37 EDT by Bashir Bean
[2019-03-18] MEDS: Famotidine 20 MG TABLET PO SCH (05:40)
[2019-03-18 06:03] LABS: BUN/Creatinine Ratio 31 (6-26); Blood Urea Nitrogen 22 mg/dL (8-23); Calcium 9.2 mg/dL (8.6-10.3); Carbon Dioxide 27 mEq/L (23-29); Chloride 100 mEq/L (98-107); Glucose 138 mg/dL (70-105); Osmolality,Calculated 292 (280-300); Potassium 3.9 mEq/L (3.5-5.1); Sodium 138 mEq/L (136-145); eGFR For African Americans > 60 (> 60); eGFR For Non-African Americans > 60 (> 60)
[2019-03-18] MEDS: Tiotropium 18 MCG inhalation IH SCH (07:24)
[2019-03-18] MEDS: Budesonide/Formoterol 80/4.5 MDI IH SCH (07:24)
[2019-03-18] MEDS ORDERED: predniSONE 20 MG TABLET PO SCH (09:00)
[2019-03-18 12:25] VITALS: BP 106/69
--- NOTE | 2019-03-18 13:28 | Discharge Summary ---
- NOTES TO OUTPATIENT PROVIDER Notes to Outpatient Provider: Admitted with acute exac asthma. Treated with 3 days of azithromycin and will complete course of steroids. Date of Encounter: 03/18/19 Time of Encounter: 13:26 - Discharge Diagnosis (1) Near syncope Priority: Secondary Status: Acute (2) COPD exacerbation Priority: Primary Status: Acute (3) Asthma Priority: Primary Status: Acute Qualifiers: Asthma severity: mild Asthma persistence: intermittent Asthma complication type: with acute exacerbation Qualified Code(s): J45.21 - Mild intermittent asthma with (acute) exacerbation (4) HLD (hyperlipidemia) Priority: Secondary Status: Chronic Qualifiers: Hyperlipidemia type: mixed hyperlipidemia Qualified Code(s): E78.2 - Mixed hyperlipidemia (5) Chronic respiratory failure with hypoxia Priority: Secondary Status: Chronic Hospital course: Ms. Cordova is a 64 year old female presented to ED with complaints of d yspnea. She was subsequently admitted. Ms Cordova was admitted to [facility]. She was stated on IV steroids and abx. She had echo normal as well as carotid doppler. She was complaining of leg c ramps and magnesium normal. She improved with treatment. Today she is feeling baseline. She is at her home level of oxygen and is ready for discharge home. - Time Spent with Patient Total time spent providing and/or coordinating discharge services: 39min - Discharge Medications Prescriptions: New predniSONE [PredniSONE] 40 mg PO DAILY #6 tablet Continued Acetaminophen [Tylenol] 325 mg PO DAILY PRN PRN Reason: Pain Atorvastatin Calcium [Lipitor] 20 mg PO DAILY Calcium Carbonate [Calcium] 500 mg PO DAILY Fluticasone Propionate Nasal [Flonase] 1 spray NS DAILY PRN PRN Reason: Allergy Symptoms Fluticasone/Salmeterol [Advair Hfa 230-21 Mcg Inhaler] 2 puff IH BID Ranitidine HCl [Heartburn Relief] 150 mg PO DAILY raNITIdine HCl [Zantac] 150 mg PO HS PRN PRN Reason: GERD Tiotropium [Spiriva] 1 puff IH DAILY Home Medications: Acetaminophen [Tylenol] 325 mg PO DAILY PRN 03/18/19 [History] Atorvastatin Calcium [Lipitor] 20 mg PO DAILY 03/18/19 [History] Calcium Carbonate [Calcium] 500 mg PO DAILY 03/18/19 [History] Fluticasone Propionate Nasal [Flonase] 1 spray NS DAILY PRN 03/18/19 [History] Fluticasone/Salmeterol [Advair Hfa 230-21 Mcg Inhaler] 2 puff IH BID 03/18/19 [History] Ranitidine HCl [Heartburn Relief] 150 mg PO DAILY 03/18/19 [History] Tiotropium [Spiriva] 1 puff IH DAILY 03/18/19 [History] predniSONE [PredniSONE] 40 mg PO DAILY #6 tablet 03/18/19 [Rx] raNITIdine HCl [Zantac] 150 mg PO HS PRN 03/18/19 [History] Allergies/Adverse Reactions: Allergy/AdvReac Type Severity Reaction Status Date / Time Cephalosporins Allergy Dizziness Verified 03/16/19 17:35 ciprofloxacin [From Cipro] Allergy Confusion Verified 03/16/19 17:35 esomeprazole [From Nexium] Allergy Rash Verified 03/16/19 17:35 Penicillins [PCN] Allergy Confusion Verified 03/16/19 17:35 phenobarbital Allergy Confusion Verified 03/16/19 17:35 Procaine [From Novocain] Allergy Confusion Verified 03/16/19 17:35 Date of admission: 03/16/19 20:26 Primary care physician: Rebekah Rae Consults: 03/16/19 22:18 Consult to Pastoral Services [CONS] Routine Comment: 03/17/19 00:40 Consult to Nurse Navigator [CONS] Routine Comment: Discharging clinician: Calin Crump Anticipated date of discharge: 03/18/19 - Constitutional Vitals: Temp Pulse Resp BP Pulse Ox 98.0 F 66 15 106/69 94 03/18/19 12:23 03/18/19 12:23 03/18/19 12:23 03/18/19 12:23 03/18/19 12:23 General appearance: Present: A&O X 3 Exam: See below - Head Head exam: Present: normocephalic - Eye Eye exam: Present: EOMI, conjuntiva pink - ENT ENT exam: Present: mucous membranes moist - Neck Neck exam general surgery: Present: supple - Respiratory Respiratory exam: Present: decreased breath sounds, CTAB - Cardiovascular Cardiovascular exam: Present: RRR. Absent: tachycardia - GI/Abdominal GI/Abdominal exam: Present: soft. Absent: tenderness - Extremities Exam Extremities exam: Present: warm. Absent: tenderness - Neurological Exam Neurological exam: Present: alert, oriented X3 - Skin Skin exam: Present: dry, warm - Patient Status Disposition: Home, Self-Care Condition: Good Functional capacity at discharge: independent ambulation Overall status at discharge: patient is progressing back to baseline - Discharge Instructions Instructions: Chronic Obstructive Pulmonary Disease (DC) Follow Up With: Rebekah Rae MD [Primary Care Provider] - (Web request. Office will call patient with date and time of appointment. Thank you) - Diet and Activity Activity: resume usual activities as tolerated, wear oxygen at all times Diet: advance to your usual diet
== END 2019-03-18 15:09 | disposition home or self-care (01) ==
LOC: 3ANU 17:09 → EMEROOARM 17:09 → SUATTDRO 20:26 → 3ANU 21:15
PROVIDERS: ADMIT Family Medicine; ATTEND Internal Medicine

== ENCOUNTER 2021-07-18 16:50 | Inpatient (IN) ==
[2021-07-18] MEDS ORDERED: Ipratropium/Albuterol Neb 3 ML IH ONE (18:06)
[2021-07-18 18:40] LABS: Basophils % 0.3 %; Hematocrit 38.8 % (35.3-44.9); Hemoglobin 13.3 g/dL (11.5-15.4); Immature Granulocytes % 0.3 % (0-4); Immature Platelets 12.3 % (1.1-6.1); Lymphocytes # 0.9 K/mcL (0.6-4.6); Lymphocytes % 14.6 %; Mean Corpuscular HGB Conc 34.3 g/dL (31.6-35.5); Mean Corpuscular Hemoglobin 30.4 pg (28.0-33.3); Mean Corpuscular Volume 88.8 fL (83.0-100.0); Mean Platelet Volume 11.7 fL (9.4-12.4); Monocytes # 0.4 K/mcL (0.0-1.3); Monocytes % 6.7 %; Neutrophils # 4.5 K/mcL (1.6-8.9); Platelet Count 140 K/mcL (140-400); Red Blood Count 4.37 M/mcL (3.82-4.97); Red Cell Distribution Width 13.3 % (11.5-14.5); Segmented Neutrophils % 78.1 %; White Blood Count 5.8 K/mcL (4.3-11.1)
[2021-07-18 19:01] LABS: Alanine Aminotransferase 21 Units/L (7-52); Albumin 3.8 g/dL (3.5-5.7); Albumin/Globulin Ratio 1.4 (1.1-2.2); Alkaline Phosphatase 51 Units/L (34-104); Aspartate Amino Transferase 35 Units/L (13-39); BUN/Creatinine Ratio 19 (6-26); Bilirubin,Direct 0.1 mg/dL (0.0-0.2); Bilirubin,Indirect 0.3 mg/dL (0.0-1.0); Bilirubin,Total 0.4 mg/dL (0.3-1.0); Blood Urea Nitrogen 11 mg/dL (8-23); Calcium 8.8 mg/dL (8.6-10.3); Carbon Dioxide 26 mEq/L (23-29); Chloride 93 mEq/L (98-107); Globulin 2.8 g/dL (2.4-3.5); Glucose 95 mg/dL (70-105); Osmolality,Calculated 269 (280-300); Potassium 3.5 mEq/L (3.5-5.1); Sodium 130 mEq/L (136-145); Total Protein 6.6 g/dL (6.4-8.9); Troponin I < 0.03 ng/mL (< 0.04); eGFR For African Americans > 60 (> 60); eGFR For Non-African Americans > 60 (> 60)
[2021-07-18 20:08] LABS: C-Reactive Protein 26 mg/L (Less than 10)
[2021-07-18] MEDS ORDERED: Ondansetron 4 MG/2 ML VIAL IVP PRN (22:27)
[2021-07-18] MEDS ORDERED: Naloxone 0.4 MG/ML INJ IVP PRN (22:27)
[2021-07-18] MEDS ORDERED: Acetaminophen 325 MG TABLET PO PRN (22:27)
[2021-07-18] MEDS ORDERED: Ipratropium 1 PUFF INHALER IH PRN (22:32)
[2021-07-18 23:31] LABS: INR 1.1; Prothrombin Time 11.9 Seconds (9.4-12.1)
[2021-07-18 23:33] LABS: Activated Partial Thrombo Time 27.9 Seconds (26.0-36.0)
[2021-07-18] MEDS ORDERED: Isovue-370 500 ML BOTTLE IVP ONE (23:41)
[2021-07-19] MEDS: *HR* Enoxaparin 40 MG/0.4 ML SYRINGE SQ SCH (05:51)
[2021-07-19] MEDS ORDERED: Remdesivir 200 MG in 0.9 % Sodium Chloride 100 ML IVPB ONE (06:00)
[2021-07-19 06:12] LABS: Hematocrit 42.5 % (35.3-44.9); Hemoglobin 14.1 g/dL (11.5-15.4); Mean Corpuscular HGB Conc 33.2 g/dL (31.6-35.5); Mean Corpuscular Hemoglobin 30.3 pg (28.0-33.3); Mean Corpuscular Volume 91.2 fL (83.0-100.0); Mean Platelet Volume 11.6 fL (9.4-12.4); Platelet Count 148 K/mcL (140-400); Red Blood Count 4.66 M/mcL (3.82-4.97); Red Cell Distribution Width 13.7 % (11.5-14.5); White Blood Count 3.8 K/mcL (4.3-11.1)
[2021-07-19 06:19] LABS: BUN/Creatinine Ratio 18 (6-26); Blood Urea Nitrogen 13 mg/dL (8-23); Calcium 8.9 mg/dL (8.6-10.3); Carbon Dioxide 27 mEq/L (23-29); Chloride 93 mEq/L (98-107); Glucose 128 mg/dL (70-105); Lactate Dehydrogenase 288 Units/L (140-271); Osmolality,Calculated 278 (280-300); Potassium 3.6 mEq/L (3.5-5.1); Sodium 133 mEq/L (136-145); eGFR For African Americans > 60 (> 60); eGFR For Non-African Americans > 60 (> 60)
[2021-07-19 06:35] LABS: Ferritin 510 ng/mL (10-120)
[2021-07-19 09:58] LABS: C-Reactive Protein 27 mg/L (Less than 10)
[2021-07-20] MEDS: Budesonide/Formoterol 160/4.5 1 PUFF INH IH SCH ×3 (00:06→20:14)
[2021-07-20] MEDS: *HR* Enoxaparin 40 MG/0.4 ML SYRINGE SQ SCH (05:37)
[2021-07-20] MEDS: Remdesivir 100 MG in 0.9 % Sodium Chloride 100 ML IVPB SCH (05:37)
[2021-07-20 06:31] LABS: Basophils % 0.1 %; Hematocrit 40.8 % (35.3-44.9); Hemoglobin 14.1 g/dL (11.5-15.4); Immature Granulocytes % 0.8 % (0-4); Lymphocytes % 9.9 %; Mean Corpuscular HGB Conc 34.6 g/dL (31.6-35.5); Mean Corpuscular Hemoglobin 31.2 pg (28.0-33.3); Mean Corpuscular Volume 90.3 fL (83.0-100.0); Mean Platelet Volume 11.9 fL (9.4-12.4); Monocytes # 0.8 K/mcL (0.0-1.3); Monocytes % 6.4 %; Neutrophils # 10.4 K/mcL (1.6-8.9); Platelet Count 186 K/mcL (140-400); Red Blood Count 4.52 M/mcL (3.82-4.97); Red Cell Distribution Width 13.6 % (11.5-14.5); Segmented Neutrophils % 82.8 %
[2021-07-20 06:32] LABS: Lymphocytes # 1.3 K/mcL (0.6-4.6); White Blood Count 12.6 K/mcL (4.3-11.1)
[2021-07-20 06:42] LABS: Alanine Aminotransferase 29 Units/L (7-52); Albumin 3.7 g/dL (3.5-5.7); Albumin/Globulin Ratio 1.4 (1.1-2.2); Alkaline Phosphatase 51 Units/L (34-104); Aspartate Amino Transferase 42 Units/L (13-39); BUN/Creatinine Ratio 35 (6-26); Bilirubin,Indirect 0.4 mg/dL (0.0-1.0); Bilirubin,Total 0.4 mg/dL (0.3-1.0); Blood Urea Nitrogen 25 mg/dL (8-23); Calcium 8.8 mg/dL (8.6-10.3); Carbon Dioxide 31 mEq/L (23-29); Chloride 96 mEq/L (98-107); Globulin 2.7 g/dL (2.4-3.5); Glucose 108 mg/dL (70-105); Magnesium 2.3 mg/dL (1.6-2.6); Osmolality,Calculated 285 (280-300); Phosphorous 4.5 mg/dL (2.7-4.5); Potassium 3.8 mEq/L (3.5-5.1); Sodium 135 mEq/L (136-145); Total Protein 6.4 g/dL (6.4-8.9); eGFR For African Americans > 60 (> 60); eGFR For Non-African Americans > 60 (> 60)
[2021-07-20] MEDS: Famotidine 20 MG TABLET PO SCH (11:03)
[2021-07-21] MEDS: Remdesivir 100 MG in 0.9 % Sodium Chloride 100 ML IVPB SCH (05:07)
[2021-07-21] MEDS: *HR* Enoxaparin 40 MG/0.4 ML SYRINGE SQ SCH (05:11)
[2021-07-21 06:40] LABS: Basophils # 0.1 K/mcL (0.0-0.2); Basophils % 0.4 %; Hematocrit 41.8 % (35.3-44.9); Hemoglobin 13.8 g/dL (11.5-15.4); Immature Granulocytes % 0.7 % (0-4); Lymphocytes # 1.3 K/mcL (0.6-4.6); Lymphocytes % 11.4 %; Mean Corpuscular Hemoglobin 30.4 pg (28.0-33.3); Mean Corpuscular Volume 92.1 fL (83.0-100.0); Mean Platelet Volume 11.4 fL (9.4-12.4); Monocytes % 8.9 %; Platelet Count 188 K/mcL (140-400); Red Blood Count 4.54 M/mcL (3.82-4.97); Red Cell Distribution Width 13.9 % (11.5-14.5); Segmented Neutrophils % 78.6 %; White Blood Count 11.4 K/mcL (4.3-11.1)
[2021-07-21 07:06] LABS: BUN/Creatinine Ratio 38 (6-26); Blood Urea Nitrogen 24 mg/dL (8-23); Calcium 8.1 mg/dL (8.6-10.3); Carbon Dioxide 28 mEq/L (23-29); Chloride 98 mEq/L (98-107); Glucose 100 mg/dL (70-105); Magnesium 2.3 mg/dL (1.6-2.6); Osmolality,Calculated 282 (280-300); Phosphorous 3.6 mg/dL (2.7-4.5); Potassium 3.9 mEq/L (3.5-5.1); Sodium 134 mEq/L (136-145); eGFR For African Americans > 60 (> 60); eGFR For Non-African Americans > 60 (> 60)
[2021-07-21 07:08] LABS: Albumin 3.4 g/dL (3.5-5.7); Albumin/Globulin Ratio 1.4 (1.1-2.2); Bilirubin,Direct 0.1 mg/dL (0.0-0.2); Bilirubin,Indirect 0.3 mg/dL (0.0-1.0); Bilirubin,Total 0.4 mg/dL (0.3-1.0); Globulin 2.5 g/dL (2.4-3.5); Total Protein 5.9 g/dL (6.4-8.9)
[2021-07-21] MEDS: Budesonide/Formoterol 160/4.5 1 PUFF INH IH SCH ×2 (07:53→21:18)
[2021-07-21] MEDS: Famotidine 20 MG TABLET PO SCH (09:06)
[2021-07-22] MEDS: *HR* Enoxaparin 40 MG/0.4 ML SYRINGE SQ SCH (05:45)
[2021-07-22] MEDS: Remdesivir 100 MG in 0.9 % Sodium Chloride 100 ML IVPB SCH (05:46)
[2021-07-22 05:47] LABS: Basophils # 0.1 K/mcL (0.0-0.2); Basophils % 0.6 %; Hematocrit 39.8 % (35.3-44.9); Hemoglobin 13.2 g/dL (11.5-15.4); Immature Granulocytes % 1.8 % (0-4); Lymphocytes # 1.7 K/mcL (0.6-4.6); Mean Corpuscular HGB Conc 33.2 g/dL (31.6-35.5); Mean Corpuscular Hemoglobin 29.9 pg (28.0-33.3); Mean Corpuscular Volume 90.2 fL (83.0-100.0); Mean Platelet Volume 11.5 fL (9.4-12.4); Monocytes # 0.9 K/mcL (0.0-1.3); Monocytes % 8.7 %; Neutrophils # 7.7 K/mcL (1.6-8.9); Platelet Count 210 K/mcL (140-400); Red Blood Count 4.41 M/mcL (3.82-4.97); Red Cell Distribution Width 13.6 % (11.5-14.5); Segmented Neutrophils % 72.9 %; White Blood Count 10.5 K/mcL (4.3-11.1)
[2021-07-22 06:05] LABS: BUN/Creatinine Ratio 42 (6-26); Blood Urea Nitrogen 22 mg/dL (8-23); Carbon Dioxide 28 mEq/L (23-29); Chloride 97 mEq/L (98-107); Glucose 113 mg/dL (70-105); Potassium 3.6 mEq/L (3.5-5.1); Sodium 133 mEq/L (136-145); eGFR For African Americans > 60 (> 60); eGFR For Non-African Americans > 60 (> 60)
[2021-07-22 06:06] LABS: Calcium 8.1 mg/dL (8.6-10.3); Magnesium 2.3 mg/dL (1.6-2.6); Osmolality,Calculated 280 (280-300)
[2021-07-22 06:16] LABS: Phosphorous 3.2 mg/dL (2.7-4.5)
[2021-07-22 06:43] LABS: Platelet Estimate Normal (Normal); Reactive Lymphocytes Present (Not Present)
[2021-07-22 06:48] LABS: Albumin 3.2 g/dL (3.5-5.7); Albumin/Globulin Ratio 1.4 (1.1-2.2); Bilirubin,Direct 0.1 mg/dL (0.0-0.2); Bilirubin,Indirect 0.3 mg/dL (0.0-1.0); Bilirubin,Total 0.4 mg/dL (0.3-1.0); Globulin 2.3 g/dL (2.4-3.5); Total Protein 5.5 g/dL (6.4-8.9)
[2021-07-22] MEDS: Famotidine 20 MG TABLET PO SCH (07:48)
[2021-07-22] MEDS: Budesonide/Formoterol 160/4.5 1 PUFF INH IH SCH ×2 (08:05→19:49)
[2021-07-23] MEDS: Remdesivir 100 MG in 0.9 % Sodium Chloride 100 ML IVPB SCH (06:19)
[2021-07-23] MEDS: *HR* Enoxaparin 40 MG/0.4 ML SYRINGE SQ SCH (06:27)
[2021-07-23] MEDS: Famotidine 20 MG TABLET PO SCH (07:34)
[2021-07-23 07:42] LABS: Hematocrit 38.5 % (35.3-44.9); Hemoglobin 13.2 g/dL (11.5-15.4); Mean Corpuscular HGB Conc 34.3 g/dL (31.6-35.5); Mean Corpuscular Hemoglobin 31.1 pg (28.0-33.3); Mean Corpuscular Volume 90.8 fL (83.0-100.0); Mean Platelet Volume 11.1 fL (9.4-12.4); Platelet Count 227 K/mcL (140-400); Red Blood Count 4.24 M/mcL (3.82-4.97); Red Cell Distribution Width 13.9 % (11.5-14.5); White Blood Count 11.9 K/mcL (4.3-11.1)
[2021-07-23 07:59] LABS: BUN/Creatinine Ratio 45 (6-26); Blood Urea Nitrogen 22 mg/dL (8-23); Calcium 7.9 mg/dL (8.6-10.3); Carbon Dioxide 27 mEq/L (23-29); Chloride 101 mEq/L (98-107); Glucose 91 mg/dL (70-105); Magnesium 2.1 mg/dL (1.6-2.6); Osmolality,Calculated 285 (280-300); Potassium 3.8 mEq/L (3.5-5.1); Sodium 136 mEq/L (136-145); eGFR For African Americans > 60 (> 60); eGFR For Non-African Americans > 60 (> 60)
[2021-07-23 08:00] LABS: Albumin 3.1 g/dL (3.5-5.7); Albumin/Globulin Ratio 1.3 (1.1-2.2); Bilirubin,Direct 0.1 mg/dL (0.0-0.2); Bilirubin,Indirect 0.4 mg/dL (0.0-1.0); Bilirubin,Total 0.5 mg/dL (0.3-1.0); Globulin 2.3 g/dL (2.4-3.5); Total Protein 5.4 g/dL (6.4-8.9)
[2021-07-23 08:01] LABS: Phosphorous 3.4 mg/dL (2.7-4.5)
[2021-07-23] MEDS: Budesonide/Formoterol 160/4.5 1 PUFF INH IH SCH (08:12)
[2021-07-23 08:17] LABS: Lymphocytes # 1.7 K/mcL (0.6-4.6); Monocytes # 0.4 K/mcL (0.0-1.3); Neutrophils # 9.9 K/mcL (1.6-8.9); Platelet Estimate Normal (Normal)
[2021-07-23 08:18] LABS: Reactive Lymphocytes Present (Not Present)
[2021-07-23 11:31] VITALS: BP 119/70; PULSE 71; TEMP 97.5; O2SAT 93
== END 2021-07-23 15:54 | disposition home or self-care (01) | DRG 177 ==
LOC: EMEROOARM 16:50 → 2NENU 16:50 → SUATTDRO 07-19 16:44
PROVIDERS: ADMIT Student in an Organized Health Care Education/Training Program; ATTEND Internal Medicine

== ENCOUNTER 2021-07-30 11:08 | Observation (INO) ==
[2021-07-30 13:37] LABS: Basophils % 0.3 %; Eosinophils % 0.3 %; Hematocrit 40.2 % (35.3-44.9); Hemoglobin 13.2 g/dL (11.5-15.4); Immature Granulocytes % 1.1 % (0-4); Lymphocytes # 1.9 K/mcL (0.6-4.6); Lymphocytes % 12.4 %; Mean Corpuscular HGB Conc 32.8 g/dL (31.6-35.5); Mean Corpuscular Hemoglobin 30.4 pg (28.0-33.3); Mean Corpuscular Volume 92.6 fL (83.0-100.0); Mean Platelet Volume 10.1 fL (9.4-12.4); Monocytes # 0.9 K/mcL (0.0-1.3); Monocytes % 5.7 %; Neutrophils # 12.3 K/mcL (1.6-8.9); Platelet Count 222 K/mcL (140-400); Red Blood Count 4.34 M/mcL (3.82-4.97); Red Cell Distribution Width 13.9 % (11.5-14.5); Segmented Neutrophils % 80.2 %; White Blood Count 15.4 K/mcL (4.3-11.1)
[2021-07-30 13:40] LABS: VBG HCO3 31 mEq/L (21-27); VBG PCO2 60 mmHg (41-51); VBG PH 7.32 pH Units (7.32-7.42); VBG PO2 39 mmHg (25-50)
[2021-07-30 13:46] LABS: Prothrombin Time 10.8 Seconds (9.4-12.1)
[2021-07-30 13:49] LABS: Activated Partial Thrombo Time 25.1 Seconds (26.0-36.0)
[2021-07-30 13:58] LABS: Alanine Aminotransferase 34 Units/L (7-52); Albumin 3.4 g/dL (3.5-5.7); Albumin/Globulin Ratio 1.4 (1.1-2.2); Alkaline Phosphatase 49 Units/L (34-104); Aspartate Amino Transferase 17 Units/L (13-39); BUN/Creatinine Ratio 24 (6-26); Blood Urea Nitrogen 15 mg/dL (8-23); Calcium 8.5 mg/dL (8.6-10.3); Carbon Dioxide 33 mEq/L (23-29); Chloride 98 mEq/L (98-107); Globulin 2.5 g/dL (2.4-3.5); Glucose 78 mg/dL (70-105); Osmolality,Calculated 286 (280-300); Potassium 3.1 mEq/L (3.5-5.1); Sodium 138 mEq/L (136-145); Total Protein 5.9 g/dL (6.4-8.9); Troponin I < 0.03 ng/mL (< 0.04); eGFR For African Americans > 60 (> 60); eGFR For Non-African Americans > 60 (> 60)
[2021-07-30] MEDS ORDERED: Isovue-370 500 ML BOTTLE IVP ONE (15:14)
[2021-07-30] MEDS ORDERED: *HR* OxyCODONE Immed Rel 5 MG TABLET PO PRN (20:39)
[2021-07-30] MEDS ORDERED: Melatonin 3 MG TABLET PO PRN (20:39)
[2021-07-30] MEDS ORDERED: Naloxone 0.4 MG/ML INJ IVP PRN (20:39)
[2021-07-30] MEDS ORDERED: Acetaminophen 325 MG TABLET PO PRN (20:39)
[2021-07-30] MEDS ORDERED: Ondansetron ODT 4 MG TAB.RAPDIS SL PRN (20:39)
[2021-07-30] MEDS ORDERED: methylPREDNISolone 125 MG/2 ML VIAL IVP ONE ×2 (21:06→21:15)
[2021-07-30] MEDS ORDERED: Azithromycin 250 MG TABLET PO ONE (21:10)
[2021-07-30] MEDS ORDERED: Ipratropium/Albuterol Neb 3 ML IH PRN (21:15)
[2021-07-30 21:26] LABS: Basophils % 0.2 %; Eosinophils % 0.3 %; Hematocrit 41.7 % (35.3-44.9); Hemoglobin 13.7 g/dL (11.5-15.4); Immature Granulocytes % 0.8 % (0-4); Lymphocytes # 1.9 K/mcL (0.6-4.6); Lymphocytes % 12.2 %; Mean Corpuscular HGB Conc 32.9 g/dL (31.6-35.5); Mean Corpuscular Hemoglobin 30.3 pg (28.0-33.3); Mean Corpuscular Volume 92.3 fL (83.0-100.0); Mean Platelet Volume 10.2 fL (9.4-12.4); Monocytes # 0.8 K/mcL (0.0-1.3); Monocytes % 5.3 %; Neutrophils # 12.5 K/mcL (1.6-8.9); Platelet Count 209 K/mcL (140-400); Red Blood Count 4.52 M/mcL (3.82-4.97); Red Cell Distribution Width 13.9 % (11.5-14.5); Segmented Neutrophils % 81.2 %; White Blood Count 15.4 K/mcL (4.3-11.1)
[2021-07-30] MEDS: 0.9 % Sodium Chloride 1,000 ML IVC SCH (22:11)
[2021-07-31] MEDS: Tiotropium 10 INH DOSE IH SCH ×2 (00:31→20:11)
[2021-07-31] MEDS: MethylPREDNISolone 40 MG/ML VIAL IVP SCH ×2 (02:39→07:58)
[2021-07-31 05:14] LABS: Alanine Aminotransferase 26 Units/L (7-52); Albumin 3.1 g/dL (3.5-5.7); Albumin/Globulin Ratio 1.3 (1.1-2.2); Alkaline Phosphatase 47 Units/L (34-104); Aspartate Amino Transferase 13 Units/L (13-39); BUN/Creatinine Ratio 26 (6-26); Bilirubin,Total 0.5 mg/dL (0.3-1.0); Blood Urea Nitrogen 15 mg/dL (8-23); Calcium 8.3 mg/dL (8.6-10.3); Carbon Dioxide 25 mEq/L (23-29); Chloride 103 mEq/L (98-107); Globulin 2.4 g/dL (2.4-3.5); Glucose 219 mg/dL (70-105); Magnesium 2.4 mg/dL (1.6-2.6); Osmolality,Calculated 288 (280-300); Potassium 4.7 mEq/L (3.5-5.1); Sodium 135 mEq/L (136-145); Total Protein 5.5 g/dL (6.4-8.9); eGFR For African Americans > 60 (> 60); eGFR For Non-African Americans > 60 (> 60)
[2021-07-31] MEDS: *HR* Heparin 5,000 UNIT/ML VIAL SQ SCH ×2 (05:19→17:50)
[2021-07-31] MEDS: Budesonide/Formoterol 160/4.5 1 PUFF INH IH SCH ×2 (08:00→20:10)
[2021-07-31] MEDS ORDERED: Perflutren Lipid Microsphere 1.3 ML in 0.9 % Sodium Chloride 8.7 ML IVP PRN (08:30)
[2021-07-31] MEDS: 0.9 % Sodium Chloride 1,000 ML IVC SCH (13:31)
[2021-07-31] MEDS ORDERED: Azithromycin 250 MG TABLET PO SCH (18:00)
[2021-07-31] MEDS ORDERED: Famotidine 20 MG TABLET PO SCH (21:00)
[2021-08-01] MEDS: *HR* Heparin 5,000 UNIT/ML VIAL SQ SCH (05:17)
[2021-08-01 06:24] LABS: Hematocrit 35.9 % (35.3-44.9); Mean Corpuscular HGB Conc 32.6 g/dL (31.6-35.5); Mean Corpuscular Hemoglobin 30.1 pg (28.0-33.3); Mean Corpuscular Volume 92.3 fL (83.0-100.0); Mean Platelet Volume 10.7 fL (9.4-12.4); Platelet Count 201 K/mcL (140-400); Red Blood Count 3.89 M/mcL (3.82-4.97); Red Cell Distribution Width 13.7 % (11.5-14.5); White Blood Count 17.2 K/mcL (4.3-11.1)
[2021-08-01 06:26] LABS: Hemoglobin 11.7 g/dL (11.5-15.4)
[2021-08-01 06:37] LABS: BUN/Creatinine Ratio 22 (6-26); Blood Urea Nitrogen 13 mg/dL (8-23); Calcium 8.4 mg/dL (8.6-10.3); Carbon Dioxide 27 mEq/L (23-29); Chloride 105 mEq/L (98-107); Glucose 102 mg/dL (70-105); Osmolality,Calculated 284 (280-300); Potassium 4.1 mEq/L (3.5-5.1); Sodium 137 mEq/L (136-145); eGFR For African Americans > 60 (> 60); eGFR For Non-African Americans > 60 (> 60)
[2021-08-01 06:52] VITALS: TEMP 97.6
[2021-08-01] MEDS: Budesonide/Formoterol 160/4.5 1 PUFF INH IH SCH (07:41)
[2021-08-01 10:53] VITALS: BP 128/78; PULSE 77
[2021-08-01 11:28] VITALS: O2SAT 97
== END 2021-08-01 13:36 | disposition home or self-care (01) ==
LOC: EMEROOARM 11:08 → 3BNU 11:08 → SUATTDRO 20:04 → 3BNU 20:54
PROVIDERS: ADMIT Family Medicine; ATTEND Internal Medicine